=== PATIENT | male | born 1945 | race Caucasian/White ===

== ENCOUNTER 2019-02-17 12:40 | Emergency (ER) | payer MEDICAID, MEDICARE ==
[~2019-02-17] VITALS: Ht 152.4 cm; Wt 52.1 kg
[~2019-02-17 12:40] MED LIST: ARIP2TAB2 PO; CLOP75TA52 PO; METO25TA35 PO; OXYC5CAP2 PO; [UNRECOGNIZED DRUG - OTHER]
[2019-02-17] MEDS ORDERED: DIPH,PERTUSS(ACELL),TET VAC/PF 0.5 ML IM-VACC ONE ×2 (13:00→14:58)
[2019-02-17] MEDS ORDERED: LIDOCAINE-MPF 1%, 5ML INFIL ONE (13:00)
[2019-02-17 13:27] LABS: BASOPHILS # (AUTO) 0.02 x10^3/uL (0-0.1); BASOPHILS % (AUTO) 0 % (0-1); EOSINOPHILS # (AUTO) 0.19 x10^3/uL (0-0.4); EOSINOPHILS % (AUTO) 2 % (1-7); LYMPHOCYTES # (AUTO) 0.88 x10^3/uL (1-3.4); LYMPHOCYTES % (AUTO) 10 % (22-44); MD NO; MEAN CORPUSCULAR HGB CONC 31.9 g/dL (33.2-36.2); MEAN CORPUSCULAR VOLUME 90.9 fL (81-97); MEAN PLATELET VOLUME 7.6 fL (7.4-10.4); MONOCYTES # (AUTO) 0.52 x10^3/uL (0.2-0.8); MONOCYTES % (AUTO) 6 % (2-9); NEUTROPHILS # (AUTO) 7.06 x10^3/uL (1.8-6.8); NEUTROPHILS % (AUTO) 81 % (42-75); PLATELET COUNT 243 x10^3/uL (130-400); RED BLOOD COUNT 4.66 x10^6/uL (4.38-5.82); RED CELL DISTRIBUTION WIDTH 14.2 % (9.4-14.8)
[2019-02-17 13:38] LABS: ALANINE AMINOTRANSFERASE 30 U/L (12-78); ALBUMIN 3.9 g/dL (3.4-5.0); ANION GAP 7 mmol/L (5-15); CALCIUM 8.5 mg/dL (8.5-10.1); CHLORIDE 104 mmol/L (98-107); CREATININE 0.97 mg/dL (0.7-1.3)
[2019-02-17 13:42] LABS: ALKALINE PHOSPHATASE 66 U/L (45-117); BILIRUBIN,TOTAL 0.1 mg/dL (0.2-1.0); TOTAL PROTEIN 6.9 g/dL (6.4-8.2); TROPONIN I 0.017 ng/mL (0.000-0.045)
--- NOTE | 2019-02-17 14:05 | NUR ---
PT TO ROOM FROM CT. PLACED ON NIBP, CONT PULSE OX. PT AWAKE AND ORIENTED X4. PT STATES " FELL OFF MY SCOOTER" PT WITH L FOREHEAD LAC. PT NEURO INTACT PER BASELINE, PT WITH NX OF PRIOR CVA. ERMD AT BEDSIDE TO EVAL PT. PT DENIES, SOB, CP, N/V. PT WITH C/O BACK PAIN 04/18, PT DOES STATE HE TAKES OXYCODONE FOR CHRONIC BACK PAIN. XRAYS OREDERED OF BACK
--- NOTE | 2019-02-17 14:48 | NUR ---
PUBLIC RELATIONS MANAGER IN ROOM TO CLEAN FOREHEAD LAC.
[2019-02-17] MEDS ORDERED: LIDOCAINE-MPF 1%, 5ML ONE (14:57)
[2019-02-17 15:06] VITALS: BP 151/74
--- NOTE | 2019-02-17 15:56 | NUR ---
Pt given crackers per request, pt agrees to stay in bed after crackers. Pt alert and oriented x4, states he drove his scooter here but will need a cab ride home.
--- NOTE | 2019-02-17 16:59 | NUR ---
Pt ambulates without assistance, wheeled to registration upon dc. Taxi voucher given for safe dc
== END 2019-02-17 17:01 | disposition home or self-care (01) ==
LOC: ED 14:27
DX: S01.81XA Laceration without foreign body of other part of head, initial encounter (principal); I10 Essential (primary) hypertension; F31.9 Bipolar disorder, unspecified; Z86.73 Personal history of transient ischemic attack (TIA), and cerebral infarction without residual deficits; W07.XXXA Fall from chair, initial encounter; Y93.89 Activity, other specified; Y92.410 Unspecified street and highway as the place of occurrence of the external cause; Y99.8 Other external cause status
CPT/HCPCS: 12011; 36415; 70450; 71045; 72072; 80053; 84484; 85025; 90471; 90715; 93005